=== PATIENT | female | born 1955 | race Caucasian/White ===

== ENCOUNTER 2019-07-27 10:43 | Outpatient (CLI) | payer OTHER ==
--- NOTE | 2019-07-27 11:19 | NUR ---
1100-VASCULAR ACCESS NURSE, DYLAN TORRES RN, INFORMED OF PATIENT ARRIVAL TO ROOM 2508. 1105-TOTAL LIFT X4 TO BED.
--- NOTE | 2019-07-27 11:30 | NUR ---
POSITIVE FOR POINT OF FIRST CONTACT AND SUICIDE SCREENING. DAVE WITH INFECTION CONTROL NOTIFIED, DOES NOT MEET REQUIREMENT FOR ISOLATION. MANAGER SECONDARY ANA PAULA NOTIFIED ABOUT LIFETIME POSITIVE SUICIDE SCREENING.
--- NOTE | 2019-07-27 12:00 | NUR ---
DR QUINTERO NOTIFIED AND REVIEWED PT'S BEHAVIOR AND ASSESSMENT. PATIENT IS A LOW RISK. RESOURCES GIVEN AND SHE VERBALIZES UNDERSTANDING.
--- NOTE | 2019-07-27 12:17 | NUR ---
1205-DISCHARGE INSTRUCTIONS REVIEWED WITH PATIENT AND ENDOCRINOLOGY PHYSICIAN FROM CO. 1210-TOTAL LIFT FROM BED TO WHEELCHAIR. 1215-DISCHARGED VIA WHEELCHAIR TO CO.
== END 2019-07-27 12:15 | disposition home or self-care (01) ==
LOC: D.OPS 10:43
PROVIDERS: ATTEND Family Medicine
DX: Z79.2 Long term (current) use of antibiotics (principal); E11.9 Type 2 diabetes mellitus without complications; J44.9 Chronic obstructive pulmonary disease, unspecified; I10 Essential (primary) hypertension

== ENCOUNTER 2019-08-03 14:05 | Inpatient (IN) | payer MEDICARE, MEDICAID ==
[2019-08-03 21:26] VITALS: BP 120/64; BMI 35.0
--- NOTE | 2019-08-03 21:45 | NUR ---
NEW ADMIT TO DOCTOR QUINTERO FROM [facility] RELATED TO ALTERED MENTAL STATUS. RECEIVED VIA EMS. PATIENT IS COOPERATIVE WITH ASSESSMENT AND CARE BUT BECAME FEARFUL AND CRYING WITH STAFF ATTEMPTS TO ASSIST HER TO WHEELCHAIR TO GET HER ADMIT WEIGHT. SHE SIGNED HER ADMIT CONSENT TO TREAT ONLY. WILL ATTEMPT MORE IN THE AM. STATES SHE WANTS TO BE A DNR. WILL CONTINUE TO MONITOR.
[2019-08-03] MEDS ORDERED: PROVENTIL/2.5 MG/3 M INH (22:01)
[2019-08-03] MEDS ORDERED: BENZTROPINE MESY1 MG PO (22:02)
[2019-08-03] MEDS ORDERED: LASIX20 MG PO (22:03)
[2019-08-03] MEDS ORDERED: KLONOPIN1 MG PO (22:04)
[2019-08-03] MEDS ORDERED: KLOR-CON M2020 MEQ PO (22:04)
[2019-08-03] MEDS ORDERED: LITHOBID 300 M300 MG PO (22:05)
[2019-08-03] MEDS ORDERED: LEXAPRO20 MG PO (22:05)
[2019-08-03] MEDS ORDERED: HYDROCODON-ACE1 EA10 PO (22:06)
[2019-08-03] MEDS ORDERED: NYSTATIN1 PWD TOPICAL (22:07)
[2019-08-03] MEDS ORDERED: OMEPRAZOLE40 MG (22:08)
[2019-08-03] MEDS ORDERED: SEROQUEL400 MG PO (22:09)
[2019-08-03] MEDS ORDERED: SEROQUEL200 MG PO (22:09)
[2019-08-03 23:02] LABS: BASOPHILS 0.2 % (0-2); EOSINOPHILS 1.6 % (0-7); HEMOGLOBIN 8.8 g/dL (12-16); IMMATURE GRANULOCYTES 0.4 % (0-5); LYMPHOCYTES 18.8 % (15-50); MCH 28.8 pg (26.0-34.0); MCHC 29.3 g/dL (31.0-37.0); MEAN PLATELET VOLUME 8.1 fL (7.4-10.4); MONOCYTES 8.2 % (2-11); NEUTROPHILS 70.8 % (40-80); PLATELET COUNT 306 10x3/uL (130-400); RBC 3.06 10x6/uL (4.00-5.40); RDW 18.5 % (11.5-14.5); WBC 10.6 10x3/uL (4.8-10.8)
--- NOTE | 2019-08-03 23:31 | NUR ---
PATIENT UPSET, FEARFUL. CRYING. INCREASING ANXIETY. UNABLE TO REDIRECT. PRN ATIVAN 0.5 MG IM GIVEN FOR ANXIETY. CONTINUE TO MONITOR.
[2019-08-03 23:44] LABS: ALKALINE PHOSPHATASE 122 U/L (30-120); ALT (SGPT) 8 U/L (10-68); BILIRUBIN - TOTAL 0.49 mg/dL (0.2-1.3); CALC OSMOLALITY 269 mosm/kg (275-300); CALCIUM 8.7 mg/dL (8.5-10.1); CARBON DIOXIDE 26.9 mmol/L (21.0-32.0); CHLORIDE - SERUM 104 mmol/L (98-107); CHOL - HDL RATIO 2.8 ratio (2.3-4.1); CHOLESTEROL, TOTAL 111 mg/dL (0-200); CREATININE - SERUM 0.7 mg/dL (0.6-1.3); GLUCOSE 119 mg/dL (74-106); HDL CHOLESTEROL 40 mg/dL (32-96); LDL CHOLESTEROL 53 mg/dL (0-100); LDL-HDL RATIO 1.3 ratio (1.5-3.5); POTASSIUM - SERUM 4.4 mmol/L (3.5-5.1); SODIUM 135 mmol/L (136-145); THYROID STIMULATING HORMONE 3.73 uIU/mL (0.36-3.74); TRIGLYCERIDE 90 mg/dL (30-200); UREA NITROGEN 9 mg/dL (7-18); eGFR NON AFRICAN AMERICAN 89 mL/min (90-120)
[2019-08-04 07:46] VITALS: BP 120/85
[2019-08-04 08:00] VITALS: BP 120/85
[2019-08-04 10:35] VITALS: BMI 34.9
[2019-08-04 10:49] VITALS: Wt 89.4 kg
[2019-08-04 13:19] LABS: % SATURATION 17 % (15-55); IRON 27 ug/dl (35-150); TOTAL IRON BIND CAPACITY 156 ug/dl (260-445); UNSAT IRON BIND CAPACITY 129 ug/dl (150-375)
--- NOTE | 2019-08-04 13:20 | NUR ---
PT SITTING IN CHAIR YELLING OUT AT THIS TIME. PT ORIENTED TO SELF ONLY AND CONFUSED. REDIRECT AND REORIENT. ATTEMPTED TO REORIENT TO SELF. PT YELLS OUT AT TIME AND UNABLE TO REDIRECT. PT COMPLIANT WITH MEDS, VITALS AND ASSESSMENTS THIS SHIFT. PT IS A TOTAL AND MAX ASSIST. CHAIR ALARM IN PLACE AND ACTIVE.
[2019-08-04 20:41] VITALS: BP 110/68
--- NOTE | 2019-08-04 22:39 | NUR ---
B)RECEIVED PATIENT SITTING IN A CHAIR AT THE NURSES STATION. CONFUSED AND DISORIENTED. CHILDLIKE AND WILL CRY OUT. RELATES "I CAN'T STAND. HELP ME." MHT HAD TO FEED PATIENT HER HS SNACK. PATIENT DOES NOT ATTEMPT TO DO ANYTHING FOR HERSELF. I)ADMINISTER MEDS AND MONITOR COMPLIANCE. REORIENT NEEDED. R)MED COMPLIANT. POOR REORIENTATION DUE TO IMPAIRED ABILITY TO PROCESS INFORMATION AND HAS A SHORT ATTENTION SPAN. P)CONTINUE POC AND PROVIDE SAFE ENVIRONMENT.
[2019-08-05 06:08] LABS: RAPID PLASMA REAGIN Non Reactive (Non Reactive)
--- NOTE | 2019-08-05 09:30 | NUR ---
PT SITTING IN CHAIR AT THIS TIME. 3X ASSIST TO GET PT INTO CHAIR AT THIS TIME. PT CAN MAKE SOME NEEDS KNOWN. PT IS DISORIENTED TO PLACE AND SIUTATION. PT YELLS OUT AT AT TIMES. UNABLE TO REDIRECT AND REORIENT AT THIS TIME. PT IS A MAX ASSIST. CHAIR ALARM IN PLACE AND ACTIVE. WILL CONT PLAN OF CARE.
--- NOTE | 2019-08-05 10:30 | NUR ---
PT C/O OF PAIN TO HER LEGS AT THIS TIME. PT CONTS TO YELL OUT. UNABLE TO REDIRECT AT THIS TIME. HYDROCODONE 10 MG PO PER PRN ORDER. WILL REASSESS.
--- NOTE | 2019-08-05 11:30 | NUR ---
PT EYES CLOSED AT THIS TIME. PT NOT YELLING OUT AT THIS TIME. RESTING QUIETLY.
--- NOTE | 2019-08-05 13:59 | NUR ---
Nutrition Follow-up: Poor appetite/PO intake. Requires feeding assistance. Diet: Regular, Mech Soft PO intake: 20-25% yesterday Wt: 197# (08/03) Last BM: 08/03 Labs reviewed Meds noted: Senokot, Lasix, KDur, vitamin B12, Pepcid, vitamin D, folate -Encourage PO intake and honor food preferences within diet restrictions. -Offer nutrition supplements. -Pt may benefit from appetite stimulant if PO intake does not improve. -Monitor wt. -RD following.
--- NOTE | 2019-08-05 14:05 | PSY ---
PATIENT NAME:ALESSIA CORNELL MEDICAL RECORD: [id number] : 53 LOCATION:[facility] Kidd ADMISSION DATE: 08/03/19 ACCOUNT: [id number] PSYCHIATRIC EVALUATION DATE OF EVALUATION: 08/04/19 IDENTIFYING DATA: The patient is 64 years old and she is admitted to the hospital on a voluntary basis. CHIEF COMPLAINT: Agitation and confusion. HISTORY OF PRESENT ILLNESS: The patient comes to us from a local senior care. She has been displaying very disruptive behaviors there, yelling, agitated and difficult to redirect. She apparently has some paranoid thoughts about her food. She is very distressed and not able to provide much in the way of useful information at this time. PAST MEDICAL HISTORY: Significant for hypertension, diabetes, COPD, and obesity. PAST PSYCHIATRIC HISTORY: Significant for a longstanding diagnosis of schizophrenia for which the patient has been extensively treated on both an inpatient and outpatient basis. FAMILY HISTORY: Unknown. ALLERGIES: SULFA. CURRENT MEDICATIONS: Include albuterol, Cogentin, Lasix, Klonopin, potassium, Lexapro, lithium, hydrocodone, and Seroquel. SOCIAL HISTORY: The patient is . She had 2 children, one of whom has . She lives in a senior care. She has no history of drug or alcohol abuse and is a former cigarette smoker. MENTAL STATUS EXAMINATION: The patient is obese, awake, alert and not cooperative. She is yelling out. She is answering questions in a labile manner. She is fully oriented. She denies that she would seek to harm herself or others. She denies psychotic symptoms. ASSESSMENT: AXIS I: Schizophrenia, paranoid type. AXIS II: None. AXIS III: Hypertension, chronic obstructive pulmonary disease, chronic back pain, gastroesophageal reflux disease, anemia, and obesity. 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 She will be treated with both mood stabilizing and antipsychotic medications. Her long-term prognosis is guarded. TRANSINT:[id number] Voice Confirmation ID: [id number] DOCUMENT ID: [id number] STACIA QUINTERO MD at 1405 CC: [id number] DICTATION DATE: 08/04/19 1146 FOUNDRY WORKER GENERAL: 08/04/19 1201 ADM IN [place] [address] [place] [address]
[2019-08-05 16:40] LABS: BILIRUBIN NEGATIVE (NEGATIVE); GLUCOSE NEGATIVE (NEGATIVE); KETONE NEGATIVE (NEGATIVE); NITRITE NEGATIVE (NEGATIVE)
[2019-08-05 16:49] LABS: BACTERIA MANY /hpf (NEGATIVE); EPITHELIAL CELLS 0-5 /hpf (0-5); RED CELLS - URINE 0-5 /hpf (0-5); WHITE CELLS - URINE >50 /hpf (NEGATIVE)
--- NOTE | 2019-08-05 22:40 | NUR ---
B) Patient is sleeping at this time, quiet and not yelling out, no behaviors noted, I) Administered scheduled medications as ordered, monitored for safety R) Medication compliant, resting quietly P) Continue plan of care.
--- NOTE | 2019-08-06 08:30 | NUR ---
2X ASSIST TO CHANGE BEDDING AND PERFORM ADLS FOR PT. PT INCONTIENT OF BOWEL AND BLADDER.
--- NOTE | 2019-08-06 08:34 | NUR ---
PT TEMP IS T: 100.9, B/P: 115/67, P:84, R:22, O2: 95%. PT IS WARM TO THE TOUCH. PAGED DR. MCKEON. INFORMATION GIVEN: VITALS SIGNS, WBC, URINE CULTURE DAY 1. DR. MCKEON TO START PT ON ANTIBIOTICS. WILL CONT TO MONITOR PT AT THIS TIME. PT IS RESTING WITH LOUD BREATHS, LUNG SOUNDS CLEAR ALL QUADS.
[2019-08-06 11:05] VITALS: BP 115/67
--- NOTE | 2019-08-06 11:28 | NUR ---
PT STARTED ON INVANZ 1 GRAM Q 24 HOUR X 7DAYS. D/C SENNA. FIRST DOSE OF ANTIBIOTIC ADMINISTERED. WILL CONT TO MONITOR FOR S/SX OF REACTION. BED ALARM IN PLACE AND ACTIVE. WILL CONT TO MONITOR.
--- NOTE | 2019-08-06 11:31 | NUR ---
2X ASSIST TO CHANGE PT BED AND PERICARE. TOTAL ASSIST WITH ADLS.
--- NOTE | 2019-08-06 13:29 | NUR ---
2X ASSIST WITH PT BED CHANGE AND PERICARE. PT TOTAL ASSIST.
--- NOTE | 2019-08-06 16:31 | NUR ---
PT RESTING IN BED WITH EYES CLOSED. PT IS NOT YELLING OUT AT THIS TIME. PT HAS INTERMETT TIMES OF YELLING OUT AND CRYING UNCONTROLABLE. UNABLE TO CONSOLE PT. PT IS ORIENTED AT TIMES. REDIRECT AND REORIENT NEEDED. COMPLIANT WITH MEDS, VITALS AND ASSESSMENTS. TOTAL AND MAX ASSIST 2XPERSON ASSISTANCE WITH BASIC ADLS. PT DOES NOT ASSIST AND YELLS OUT DURING PERICARE. CONT TO ADMINISTER NYSTATIN TO EFFECTED AREAS. CONT ANTIBIOTIC. BED ALARM IN PLACE AND ACTIVE. WILL CONT PLAN OF CARE.
[2019-08-06 20:00] VITALS: BP 96/57
--- NOTE | 2019-08-06 22:00 | NUR ---
B.) PT IS ALERT AND ORIENTED TO SELF ONLY. SHE HAS POOR INSIGHT INTO HER SITUATION. SHE IS RECEIVED IN HER ROOM. SHE IS UNABLE TO AMBULATE. I.) PROVIDED PM MEDICATIONS PRESCRIBED. REDIRECT OFTEN. TURN AND REPOSITION Q2 HOURS. R.) COMPLIANT WITH ALL MEDICATIONS. DIFFICULT TO REDIRECT. TOLERATED REPOSITION WELL WITH NO SIGNS OF DISTRESS. P.) WILL CONTINUE TO MONITOR.
--- NOTE | 2019-08-07 03:54 | NUR ---
PT CRYING OUT CONTINUOUSLY. UNCONSOLABLE. YELLING OUT AT TIMES. PRN ATIVAN ADMINISTERED IM. WILL CONTINUE TO MONITOR.
--- NOTE | 2019-08-07 04:25 | NUR ---
PT RESTING CALMY AND QUIETLY IN BED WITH EYES CLOSED. NO SIGNS OF DISTRESS NOTED. WILL CONTINUE TO MONITOR.
--- NOTE | 2019-08-07 07:20 | NUR ---
Assessed the patient she is sleeping not opening her eyes, staff cleaning her as she voided urine. The patient is yelling and not assisting staff to roll ot move. She is not opening her eyes. Staff offering ice chips and water she is refusing.
[2019-08-07 08:07] VITALS: BP 103/59
--- NOTE | 2019-08-07 09:00 | NUR ---
The patient voided urine, staff cleaned her up and applied nystatin powder to her bette area and abdominal folds. The patient is not assisting staff, she yells when she is moved. Offered water. Offered breakfast, she does not want it, holds the food in her mouth. Repositioned.
[2019-08-07 10:13] VITALS: BP 103/59
--- NOTE | 2019-08-07 10:30 | NUR ---
Offering the patient her meds she is not doing well with that, she is allowing it to sit in her mouth, provided juice, water, and ice chips, she swallows the fluids easier. She voided urine, cleaned her up, changed chux. She is not opening her eyes, she yells out when she is moved. She is not assisting staff.
[2019-08-07 12:48] LABS: BASOPHILS 0.3 % (0-2); EOSINOPHILS 1.3 % (0-7); HEMATOCRIT 27.3 % (36.0-48.0); HEMOGLOBIN 8.1 g/dL (12-16); IMMATURE GRANULOCYTES 0.4 % (0-5); LYMPHOCYTES 22.6 % (15-50); MCH 29.1 pg (26.0-34.0); MCHC 29.7 g/dL (31.0-37.0); MCV 98.2 fL (80.0-100.0); MONOCYTES 13.7 % (2-11); NEUTROPHILS 61.7 % (40-80); RBC 2.78 10x6/uL (4.00-5.40); WBC 7.4 10x3/uL (4.8-10.8)
[2019-08-07 12:50] LABS: PLATELET COUNT 220 10x3/uL (130-400)
[2019-08-07 13:03] LABS: ALBUMIN 1.8 g/dL (3.4-5.0); ALKALINE PHOSPHATASE 94 U/L (30-120); ALT (SGPT) 8 U/L (10-68); BILIRUBIN - TOTAL 0.46 mg/dL (0.2-1.3); CALC OSMOLALITY 275 mosm/kg (275-300); CALCIUM 8.5 mg/dL (8.5-10.1); CARBON DIOXIDE 25.3 mmol/L (21.0-32.0); CHLORIDE - SERUM 109 mmol/L (98-107); CREATININE - SERUM 0.8 mg/dL (0.6-1.3); GLUCOSE 102 mg/dL (74-106); PROTEIN - SERUM 6.3 g/dL (6.4-8.2); SODIUM 139 mmol/L (136-145); UREA NITROGEN 8 mg/dL (7-18); eGFR NON AFRICAN AMERICAN 76 mL/min (90-120)
--- NOTE | 2019-08-07 13:40 | NUR ---
Offered the patient water and ice chips, tried to see if she would eat, she is too sleepy, she makes a grunt sound when questioned, otherwise she is not opening her eyes or speaking to staff. Checked to see if the patient was wet. Turned to right side. Her legs and feet are edematous.
--- NOTE | 2019-08-07 15:15 | NUR ---
Assessed patient to turn her to her side and check if she is wet. She is dry and she is rolled to her left side with blankets and pillows to brace her up. Sat her up in the bed and offered her water and ice chips, she does not want them and has spit them out. Did not give her 1500 meds as she is too sleepy and spitting out her fluids and ice chips.
--- NOTE | 2019-08-07 17:20 | NUR ---
Checked the patient sat her up in the bed to see if she would like to eat or drink. Offered her pudding, she spit it out. Offered her water she spit it out.
--- NOTE | 2019-08-07 17:48 | NUR ---
Patient is wet, provided a bed bath and changed her linen. She screamed. Offered her more ice chips, she refused. Jeremiah Jameson [facility] provided a shampoo shower cap. The patient is repositioned to her right side at this time. HOB elevated slightly. The patient is opening her eyes and looking at staff, but she has not spoken to anyone.
--- NOTE | 2019-08-07 20:50 | NUR ---
B.) PT IS ALERT AND ORIENTED TO SELF ONLY. SHE IS UNABLE TO SPEAK COHERENTLY. SHE YELLS OUT CONSTANTLY. SHE IS CRYING AND TEARFUL. SHE IS UNABLE TO ASSIST WITH REPOSITIONING. I.) PROVIDED PRN 0.5 MG ATIVAN IM. REDIRECT CONSTANTLY. R.) COMPLIANT WITH ALL MEDICATIONS. IMPOSSIBLE TO REDIRECT. P.) WILL CONTINUE TO MONITOR.
--- NOTE | 2019-08-07 21:18 | NUR ---
PATIENT YELLING OUT WHEN ASKED SHE SAID YES TO ARE YOU IN PAIN, PRN NORCO GIVEN FOR PAIN ESTAMATED TO BE 8 OF 10 AT 21:04, WILL CONTINUE TO MONITOR.
--- NOTE | 2019-08-07 21:21 | NUR ---
PT RESTING CALMLY IN BED WITH EYES CLOSED. NO SIGNS OF DISTRESS NOTED. WILL CONTINUE TO MONITOR.
--- NOTE | 2019-08-08 01:55 | NUR ---
PATIENT IN PAIN 8 OF 10 , BACK PAIN, GAVE PRN NORCO 10 TAB PO AND BACLOFEN 10 MG PO .
[2019-08-08 05:17] VITALS: BP 110/66
--- NOTE | 2019-08-08 07:45 | NUR ---
Staff got the patient up and put her in the bed. She is cleansed and assisted to the michael lift and in a soren chair. Offered her some ice chips. She didn't want them. She is yelling out. Asked if she is hurting. She said "No." Asked her if she is anxious. She said "Yes" Told her I'd get her morning meds ready.
[2019-08-08 08:24] VITALS: BP 115/51
--- NOTE | 2019-08-08 08:37 | NUR ---
The patient is awake is in the day room, staff trying to feed her, but she is spitting it out. She took her meds crushed in an ensure. Turned her to her left side in the recliner. Offered her a grape juice and she did drink all of it, thickened it to make sure she didn't choke. She did well.
--- NOTE | 2019-08-08 11:06 | NUR ---
The patient is yelling intermittantly. She is on her back now and offered her cranberry juice, thickened it and she drank all of it. She also ate an ice cream.
--- NOTE | 2019-08-08 11:17 | NUR ---
The patient continues to scream and yell and she is not listening or redirecting. Ativan 0.5 mg po given and provided her juice. She continues to yell.
--- NOTE | 2019-08-08 12:16 | NUR ---
The patient continues to yell and she is offered ice cream and repositioned. Baclofen po provided, see MAR.
--- NOTE | 2019-08-08 13:00 | NUR ---
The patient is yelling out intermittantly. She is trying to relax.
--- NOTE | 2019-08-08 13:20 | NUR ---
The patient continues to yell and she is beginning to upset others. Provided her Ativan 0.5 mg and Haldol 2 mg po, also provided her a few sips of boost.
--- NOTE | 2019-08-08 13:40 | NUR ---
Assisted patient to her right side in the recliner, although, the patient is not staying on the side well.
--- NOTE | 2019-08-08 14:50 | NUR ---
Brought the patient to her room so that she can lay down and get off of her bottom. Changed her as she is wet and rolled her to her right side. The patient continues to yell.
--- NOTE | 2019-08-08 17:20 | NUR ---
Attempted to feed the patient her meal, she refused, but she drank a whole boost. Assisted the patient on her back and put the HOB up. She is not screaming at this time.
[2019-08-08 18:55] VITALS: BP 129/75
--- NOTE | 2019-08-08 18:55 | NUR ---
RECEIVED IN DAYROOM. RESTING IN BED WITH EYES CLOSED. YELLING OUT CONTINUOUSLY. UNABLE TO REDIRECT OR REORIENT. CONTINUES TO YELL OUT. CONTINUE PLAN OF CARE.
--- NOTE | 2019-08-08 21:57 | NUR ---
PATIENT YELLING OUT UNCONTROLLABLY. INCREASING ANXIETY. UNABLE TO REDIRECT AND REORIENT TO CALM. PRN ATIVAN 0.5 MG IM GIVEN FOR ANXIETY. PRN HALDOL 2 MG IM GIVEN FOR PSYCHOTIC BEHAVIOR. PATIENT REPOSITIONED TO HER LEFT SIDE. CONTINUE TO MONITOR.
--- NOTE | 2019-08-08 22:47 | NUR ---
RESTING QUIETLY WITH EYES CLOSED.
[2019-08-09 08:29] VITALS: BP 134/54
--- NOTE | 2019-08-09 12:00 | NUR ---
RECEIVED IN HALLWAY OUTSIDE OF NURSES STATION. CALM AND COOPERATIVE WITH CARE AND ASSESSMENT. YELLING OUT. NOT REDIRECTABLE. REDIRECT AND REORIENT NEEDED. REFUSING TO EAT AT THIS TIME. CONTINUE PLAN OF CARE.
--- NOTE | 2019-08-09 13:26 | PN ---
PATIENT:ALESSIA CORNELL MEDICAL RECORD: [id number] LOCATION:[facility]I Enriquez ADMISSION DATE: 08/03/19 PROGRESS NOTE DATE OF SERVICE: 08/05/2019 SUBJECTIVE: The patient's case was discussed with staff. She has no new complaint. OBJECTIVE: The patient denies intent to harm herself or others. She generally tolerates her medications well. Unfortunately, she is easily agitated, very psychotic, delusional and disorganized. Her lithium level is normal at 1.07 mEq. I am going to taper her Seroquel down and treat her with a high potency neuroleptic. Longitudinal history indicate she does have a history of schizophrenia. TRANSINT:[id number] Voice Confirmation ID: [id number] DOCUMENT ID: [id number] STACIA QUINTERO MD at 1326 CC: [id number] DICTATION DATE: 08/05/19 1523 WORK DISTRIBUTOR: 08/05/19 1530 ADM IN [place] [address] [place] [address]
[2019-08-09 16:19] LABS: BASOPHILS 0.2 % (0-2); EOSINOPHILS 0.8 % (0-7); HEMOGLOBIN 9.7 g/dL (12-16); IMMATURE GRANULOCYTES 0.3 % (0-5); MCH 28.7 pg (26.0-34.0); MCHC 28.8 g/dL (31.0-37.0); MCV 99.7 fL (80.0-100.0); MEAN PLATELET VOLUME 8.4 fL (7.4-10.4); MONOCYTES 11.2 % (2-11); NEUTROPHILS 64.5 % (40-80)
[2019-08-09 16:20] LABS: HEMATOCRIT 33.7 % (36.0-48.0); PLATELET COUNT 295 10x3/uL (130-400); RBC 3.38 10x6/uL (4.00-5.40); WBC 11.8 10x3/uL (4.8-10.8)
[2019-08-09 16:29] LABS: CALC OSMOLALITY 287 mosm/kg (275-300); CALCIUM 8.8 mg/dL (8.5-10.1); CARBON DIOXIDE 24.7 mmol/L (21.0-32.0); CHLORIDE - SERUM 111 mmol/L (98-107); CREATININE - SERUM 0.8 mg/dL (0.6-1.3); GLUCOSE 118 mg/dL (74-106); POTASSIUM - SERUM 4.3 mmol/L (3.5-5.1); SODIUM 145 mmol/L (136-145); UREA NITROGEN 8 mg/dL (7-18); eGFR NON AFRICAN AMERICAN 76 mL/min (90-120)
--- NOTE | 2019-08-09 19:20 | NUR ---
RECEIVED IN BEDROOM. RESTING IN BED WITH EYES CLOSED. YELLING OUT. COOPERATIVE WITH CARE AND ASSESSMENT. ENCOURAGE TO EXPRESS NEEDS. REDIRECT AND REORIENT NEEDED. CONTINUES TO SIT CALMLY IN DAYROOM. CONTINUE PLAN OF CARE.
[2019-08-09 21:25] VITALS: BP 128/69
--- NOTE | 2019-08-09 22:52 | NUR ---
YELLING OUT CONSTANTLY FROM BED.
--- NOTE | 2019-08-10 04:55 | NUR ---
CONTINUES TO YELL OUT.
[2019-08-10 07:59] VITALS: BP 124/58
--- NOTE | 2019-08-10 10:28 | PN ---
PATIENT:ALESSIA CORNELL MEDICAL RECORD: [id number] LOCATION:[facility]I Enriquez ADMISSION DATE: 08/03/19 PROGRESS NOTE DATE OF SERVICE: 08/09/2019 SUBJECTIVE: The patient's case was discussed with staff. She has no new complaint. OBJECTIVE: The patient is not eating. She has very poor insight about her situation and is yelling out a great deal. ASSESSMENT: Schizophrenia. PLAN: The patient is going to be given a higher dose of scheduled Ativan and her Seroquel will be tapered downward. TRANSINT:[id number] Voice Confirmation ID: [id number] DOCUMENT ID: [id number] STACIA QUINTERO MD at 1028 CC: [id number] DICTATION DATE: 08/09/19 1532 BILINGUAL TEACHER ASSISTANT: 08/09/19 2322 ADM IN [facility] [address] [place] [address]
--- NOTE | 2019-08-10 11:16 | NUR ---
RECEIVED IN HALLWAY OUTSIDE OF NURSES STATION. CALM AND COOPERATIVE WITH CARE AND ASSESSMENT. YELLING OUT AT TIMES. REDIRECT AND REORIENT NEEDED. RESTING IN RECLINER WITH EYES CLOSED AT THIS TIME. CONTINUE PLAN OF CARE.
--- NOTE | 2019-08-10 19:57 | NUR ---
RECEIVED IN DAUROOM. LAYING QUIETLY IN A RECLINER. NO VERBAL RESPONSES TO QUESTIONS. YELLS OUT. COOPERATIVE WITH CARE AND ASSESSMENT. ENCOURAGE TO EXPRESS NEEDS. RESTING IN BED WITH EYES CLOSED, YELLING OUT CONSTANTLY. CONTINUE PLAN OF CARE.
[2019-08-10 21:00] VITALS: BP 125/69
--- NOTE | 2019-08-10 21:51 | NUR ---
DOCTOR LINDA CALL WITH ABNORMAL VITAL SIGNS. TEMP 103, B/P 125/69, P 112, R 23, 02 85 AND 91 AFTER ENCOURAGED TO DEEP BREATH. NEW ORDERS RECEIVED. TYLENOL 650 MG PO Q4HP, ORDERS FOR AM, CHEST X-RAY, CBC, BMP, BLOOD CULTURES X2, FLU A&B. O2 STARTED 2L VIA N/C. CONTINUE TO MONITOR.
[2019-08-11 00:17] VITALS: BP 127/72
--- NOTE | 2019-08-11 07:15 | NUR ---
RECEIVED IN PATIENT ROOM. COOPERATIVE WITH CARE AND ASSESSMENT. YELLING OUT. REFUSING TO EAT. REDIRECT AND REORIENT NEEDED. RESTING IN BED AT THIS TIME. CONTINUE PLAN OF CARE.
--- NOTE | 2019-08-11 07:46 | NUR ---
FLU SWAB TEST COLLECTED AND SENT TO LAB.
[2019-08-11 08:20] LABS: HEMATOCRIT 36.9 % (36.0-48.0); HEMOGLOBIN 10.7 g/dL (12-16); PLATELET COUNT 300 10x3/uL (130-400); RBC 3.69 10x6/uL (4.00-5.40); RDW 18.2 % (11.5-14.5)
[2019-08-11 08:33] LABS: WBC 16.5 10x3/uL (4.8-10.8)
[2019-08-11 08:47] LABS: ANISOCYTOSIS OCC; BASOPHILS 1 % (0-2); LYMPHOCYTES 24 % (15-50); NEUTROPHILS 69 % (40-80); PLATELET ESTIMATE NORMAL
[2019-08-11 08:53] LABS: ANION GAP 15.6 mmol/L (8-16); CALCIUM 8.9 mg/dL (8.5-10.1); CARBON DIOXIDE 23.5 mmol/L (21.0-32.0); POTASSIUM - SERUM 4.1 mmol/L (3.5-5.1)
[2019-08-11 09:02] LABS: CREATININE - SERUM 1.1 mg/dL (0.6-1.3)
[2019-08-11 09:04] VITALS: BP 136/63
--- NOTE | 2019-08-11 09:26 | NUR ---
SW CONTACTED PT'S DTR, DENISSE, TO DISCUSS PT'S CONDITION. LESTER LEFT VOICEMAIL TO CALL UNIT.
[2019-08-11] MEDS ORDERED: INVANZ 1 GM/NS 11 G1 IM (09:31)
[2019-08-11] MEDS ORDERED: TAMIFLU75 MG PO (09:31)
[2019-08-11] MEDS ORDERED: FERROUS SULFAT325 MG PO (09:31)
[2019-08-11] MEDS ORDERED: BACLOFEN10 MG PO (09:32)
[2019-08-11] MEDS ORDERED: ACETAMINOPHEN325 MG PO (09:32)
[2019-08-11] MEDS ORDERED: HALDOL5 MG PO (09:33)
[2019-08-11] MEDS ORDERED: KLONOPIN1 MG PO (09:33)
[2019-08-11] MEDS ORDERED: FUROSEMIDE20 MG PO (09:34)
[2019-08-11] MEDS ORDERED: K-DUR20 MEQ PO (09:35)
[2019-08-11] MEDS ORDERED: FLORAJEN3 CAPS460 MG PO (09:35)
[2019-08-11] MEDS ORDERED: VITAMIN B-121000 MCG PO (09:36)
[2019-08-11] MEDS ORDERED: Xylocaine-MPF 1% IM (09:36)
[2019-08-11] MEDS ORDERED: VITAMIN D5000 UNI3 PO (09:36)
[2019-08-11] MEDS ORDERED: Senokot TAB PO (09:36)
[2019-08-11] MEDS ORDERED: FOLIC ACID1 MG PO (09:37)
--- NOTE | 2019-08-11 09:39 | PN ---
PATIENT:ALESSIA CORNELL MEDICAL RECORD: [id number] LOCATION:[facility]I Enriquez ADMISSION DATE: 08/03/19 PROGRESS NOTE DATE OF SERVICE: 08/10/2019 SUBJECTIVE: The patient's case was discussed with staff. She has no new complaint. OBJECTIVE: The patient is withdrawn and not eating. She is answering questions minimally. Baseline labs drawn yesterday showed no significant abnormality including a lithium level that is therapeutic. ASSESSMENT: Schizophrenia. PLAN: At this time, I am going to reduce the patient's Klonopin slightly. If the other medicines are appropriate for her, they have not shown any improvement in her condition so far; however, it may be that they have not had an opportunity to become effective. TRANSINT:[id number] Voice Confirmation ID: [id number] DOCUMENT ID: [id number] STACIA QUINTERO MD at 0939 CC: [id number] DICTATION DATE: 08/10/19 1308 INFERTILITY NURSE: 08/10/19 1746 [facility] IN [facility] [address] [place] [id number]
--- NOTE | 2019-08-11 10:00 | NUR ---
COVID 19 TEST COLLECTED AND SENT TO LAB.
--- NOTE | 2019-08-11 11:26 | NUR ---
PT'S DTR DENISSE CALLED AND SW UPDATED HER ON MEDICAL DECLINE AND PT BEING SENT TO A MEDICAL FLOOR. DENISSE VERBALIZED UNDERSTANDING OF PT'S CONDITION AND REASON FOR ADMISSION.
--- NOTE | 2019-08-11 14:33 | NUR ---
PATIENT DISCHARGED FROM [facility] AND ADMITTED TO ICU. REPORT CALLED. PATIENT TRANSPORTED TO ICU VIA BED BY STAFF. HARDCOPY OF DISCHARGE PAPERWORK SENT TO ICU WITH PATIENT. PATIENT BELONGINGS SENT WITH PATIENT TO ICU. ATTEMPTED TO CALL DAUGHTER, GHANSHYAM, TO NOTIFY HER OF ICU TRANSFER AND ROOM NUMBER. NO SUCCESS. GHANSHYAM DID NOT ANSWER AND WAS UNABLE TO LEAVE VOICEMAIL.
--- NOTE | 2019-08-12 13:01 | DS ---
PATIENT:ALESSIA CORNELL :53 MEDICAL RECORD: [id number] DISCHARGE SUMMARY ADMISSION DATE: 08/03/19 DISCHARGE DATE: 08/11/19 IDENTIFYING DATA: The patient is 64 years old and she was admitted to the hospital on a voluntary basis. CHIEF COMPLAINT: Confusion and agitation. HISTORY OF PRESENT ILLNESS: The patient comes to us from a local jail. She has been disruptive there, yelling, agitated and difficult to redirect. She has some paranoid thoughts and believes her food is being poisoned. She was highly distressed and unable to give anything in the way of useful information. HOSPITAL COURSE: The patient was admitted to the hospital and comprehensively evaluated from both a medical, psychological, and social standpoint. 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 She was started on antipsychotic medications. She subsequently developed a fever and was found to have a chest x-ray consistent with a viral pneumonia. She was then transferred to the medical floor for observation as a person under investigation for possible COVID-19 infection. DISCHARGE DIAGNOSES: AXIS I: Schizophrenia, paranoid type. AXIS II: None. AXIS III: Hypertension, chronic obstructive pulmonary disease, chronic back pain, gastroesophageal reflux disease, anemia, obesity, and rule out COVID-19 infection. AXIS IV: Moderate. AXIS V: Global assessment of functioning is 30. PLAN: At the time of discharge, the patient was febrile, did not have decrease in her pulse oximetry and was suspected of having a COVID-19 infection. She was continuing to be delusional and is in need of ongoing psychiatric care. TRANSINT:[id number] Voice Confirmation ID: [id number] DOCUMENT ID: [id number] STACIA QUINTERO MD at 1301 CC: [id number] DICTATION DATE: 08/11/19 1624 COUNTER INTELLIGENCE TECHNICIAN: 08/12/19 0713 DIS IN 08/11/19 [id number] [place] [address]
== END 2019-08-11 14:40 | disposition short-term general hospital (02) | DRG 885 ==
LOC: D.PSYCH 14:05
PROVIDERS: Family Medicine; ADMIT Psychiatry & Neurology Psychiatry; ATTEND Psychiatry & Neurology Psychiatry
DX: F20.0 Paranoid schizophrenia (principal); J12.9 Viral pneumonia, unspecified; N30.00 Acute cystitis without hematuria; I10 Essential (primary) hypertension; J44.9 Chronic obstructive pulmonary disease, unspecified; K21.9 Gastro-esophageal reflux disease without esophagitis; F41.8 Other specified anxiety disorders; M19.91 Primary osteoarthritis, unspecified site; D50.8 Other iron deficiency anemias; E55.9 Vitamin D deficiency, unspecified; E66.9 Obesity, unspecified; Z68.35 Body mass index [BMI] 35.0-35.9, adult

== ENCOUNTER 2019-08-11 16:43 | Inpatient (IN) | payer OTHER ==
[~2019-08-11] VITALS: Ht 170.2 cm; Wt 82.6 kg
--- NOTE | 2019-08-11 15:00 | NUR ---
RECEIVED FROM [facility] PER BED. TRANSFERED TO BED PER STAFF. PATIENT ANSWERS TO HER NAME AND STATES SHE IS IN HOSPITAL BUT DOES NOT ANSWER WHEN ASKED WHY SHE IS IN THE HOSPITAL. MOVES TOES ON REQUEST BUT DOES NOT SQUEEZE HANDS ON REQUEST. PUPILS LARGE AND REACTIVE TO LIGHT. MONITOR SR WITH PAC'S. TEMP 102.[address] NUGENT HERE ORDERS RECEIVED. INCONT OF URINE YELLOW NO FOUL ODOR NOTED. YEAST PINK RASH NOTED IN ABD FOLDS, GROIN AREA BETWEEN LEGS. NO SKIN BREAKDOWN ON COCCYX NOTED. BRUISING NOTED ON ARMS AND LEGS. ABD SOFT. PULSE OX 88% ON ROOM AIR. OXYGEN HIGH FLOW APPLIED 4 LITERS PER NC. DOES REALLY MAKE EYE CONTACT. BUT DOES LOOK AT NURSE.
[2019-08-11 16:00] VITALS: BP 129/78
--- NOTE | 2019-08-11 16:00 | NUR ---
IV STARTED RIGHT THUMB WRIST AREA WITH 22 GAUGE X 3 STICKS INFUSING WITH D51/2 NS AT 75 ML HOUR PER ORDERS OF DR. NUGENT. PICKENS CATH INSERTED 16F IN PMP CERTIFIED PROJECT MANAGER WITH IMMEDAITE RETURN OF CLEAR YELLOW URINE.PATIENT TOLERATED WELL. ASKED IF SHE WAS HUNGRY AND SHE SAID YES. HEAD OF BED ELEVATED 30 DEGREES. PICKENS SECURE TO RIGHT THIGH
[~2019-08-11 16:43] MED LIST: ACETAMINOPHEN325 MG PO; BACLOFEN10 MG PO; BENZTROPINE MESY1 MG PO; FERROUS SULFAT325 MG PO; FLORAJEN3 CAPS460 MG PO; FOLIC ACID1 MG PO; FUROSEMIDE20 MG PO; HALDOL5 MG PO; HYDROCODON-ACE1 EA10 PO; INVANZ 1 GM/NS 11 G1 IM; K-DUR20 MEQ PO; KLONOPIN1 MG PO; KLOR-CON M2020 MEQ PO; LASIX20 MG PO; LEXAPRO20 MG PO; LITHOBID 300 M300 MG PO; NYSTATIN1 PWD TOPICAL; OMEPRAZOLE40 MG; PROVENTIL/2.5 MG/3 M INH; SEROQUEL200 MG PO; SEROQUEL400 MG PO; Senokot TAB PO; TAMIFLU75 MG PO; VITAMIN B-121000 MCG PO; VITAMIN D5000 UNI3 PO; Xylocaine-MPF 1% IM
[2019-08-11 17:18] VITALS: BP 131/71; BMI 28.6
--- NOTE | 2019-08-11 17:30 | NUR ---
PUREED DIET FEED TO PATIENT ATE FIRST 2 BITES WELL. HEAD OF BED ELEVATED 90 DEGREES. THIRD BITE HELD IN MOUTH. GAVE PATIENT HONEY CONSISTENCY TEA TO SWALLOW FOOD IN MOUTH. PATIENT DID START COUGHING AND CHOKING. NO MORE DIET FEED TO PATIENT AT THIS TIME.
[2019-08-11 19:00] VITALS: BP 122/62
--- NOTE | 2019-08-11 19:00 | NUR ---
HEAD TO TOE ASSESSMENT COMPLETED. PT CONFUSED/LETHARGIC WITH AN ELEVATED TEMP. ADMINISTERED TYLENOL ORDERED. LAB OBTAINED CULTURES. INSERTED PIV INTO RT ACX 1 STICK AND ADMINISTERED ABX PER ORDER. REPOSITIONED PATIENT. COVID ISOLATION MAINTAINED. BED LOW SIDE RAILS UPX2 CALL LIGHT WITH IN REACH.
--- NOTE | 2019-08-11 20:00 | NUR ---
ATTEMPTED TO ADMINISTER PO TYLENOL WITH A APPLESAUCE. PT LETHARGIC. UNABLE TO KEEP PT AWAKE. WILL ADMINISTER SUPPOSITORY PER ORDER.
[2019-08-11 23:00] VITALS: BP 121/74
[2019-08-12] VITALS (36 sets, daily range): BP systolic 78–129; BP diastolic 37–73; Ht 170.2 cm; Wt 82.6 kg
[2019-08-12 03:52] LABS: APTT 34.6 SECONDS (22.8-39.4)
[2019-08-12 04:05] LABS: D-DIMER-QUANTITATIVE 13.19 ug/mLFEU (0.20-0.54)
[2019-08-12 04:11] LABS: ALBUMIN 2.2 g/dL (3.4-5.0); ANION GAP 9.8 mmol/L (8-16); BILIRUBIN - TOTAL 0.66 mg/dL (0.2-1.3); C-REACTIVE PROTEIN 5.1 mg/dL (0.0-0.9); CALCIUM 8.5 mg/dL (8.5-10.1); CARBON DIOXIDE 24.9 mmol/L (21.0-32.0); CREATININE - SERUM 0.9 mg/dL (0.6-1.3); POTASSIUM - SERUM 3.7 mmol/L (3.5-5.1); PROTEIN - SERUM 7.3 g/dL (6.4-8.2)
[2019-08-12 04:13] LABS: BASOPHILS 0.3 % (0-2); EOSINOPHILS 0.3 % (0-7); HEMOGLOBIN 10.8 g/dL (12-16); IMMATURE GRANULOCYTES 0.4 % (0-5); LYMPHOCYTES 14.1 % (15-50); MCH 29.1 pg (26.0-34.0); MCHC 28.4 g/dL (31.0-37.0); MEAN PLATELET VOLUME 9.5 fL (7.4-10.4); MONOCYTES 8.6 % (2-11); NEUTROPHILS 76.3 % (40-80); PLATELET COUNT 252 10x3/uL (130-400); RBC 3.71 10x6/uL (4.00-5.40); RDW 17.9 % (11.5-14.5); WBC 18.6 10x3/uL (4.8-10.8)
[2019-08-12 04:14] LABS: MCV 102.4 fL (80.0-100.0)
--- NOTE | 2019-08-12 04:25 | NUR ---
CALLED DR SAMSON REGARDING AM LAB RESULTS. ORDERS RECIEVED TO ADMINISTER VANC 1 GR AND HAVE PHARMACY DOSE THE REMAINER. UPDATED CONDITION. WILL CONTINUE TO MONITOR. PROVIDED ORAL CARE AND REPOSITIONED FOR COMFORT.
--- NOTE | 2019-08-12 07:30 | NUR ---
REPORT RECEIVED. PT ON COVID PRECAUTIONS. HAS IV TO RIGHT AC. PT IS CONFUSED AND YELLING. GARBLED. HARD TO UNDERSTAND. PT HAS PICKENS. IS ON HIGH FLOW O2 AT 4L. PT HAS PICKENS. WAS TOLD IN REPORT THAT PT CANNOT SWALLOW. THAT SHE ALMOST CHOKED ON HER DINNER LAST NIGHT THEN WAS UNABLE TO SWALLOW PILLS. WILL MONITOR.
--- NOTE | 2019-08-12 09:07 | NUR ---
O2 RATE INCREASED TO 7L PER RT AND ABG DONE.
--- NOTE | 2019-08-12 10:00 | NUR ---
ATTEMPTED TO CALL EMERGENCY CONTACT, GHANSHYAM FOX, TO VERIFY PT'S CODE STATUS. UNABLE TO LEAVE VOICEMAIL D/T VOICE MAILBOX NOT BEING SET UP. WILL TRY AGAIN.
--- NOTE | 2019-08-12 10:40 | NUR ---
SPOKE WITH PT'S DAUGHTER, GHANSHYAM, WHO STATED THAT PT IS NOT A DNR. SHE STATES THAT THEY HADN'T HAD THAT CONVERSATION TO DECIDE.
--- NOTE | 2019-08-12 11:18 | NUR ---
NG TUBE DROPPED TO LEFT NARE BY DR NUGENT. PT ON NONREBREATHER. IN SOFT WRIST RESTRAINTS AT THIS TIME. WILL CONTINUE TO MONITOR.
--- NOTE | 2019-08-12 12:49 | NUR ---
TEMP OF 101.7 AXILLARY. TYLENOL SUPPOSITORY GIVEN. PT GLENNAING. GEODON IM GIVEN. WILL CONTINUE TO MONITOR.
--- NOTE | 2019-08-12 13:40 | NUR ---
PT HAVING ECHO DONE.
--- NOTE | 2019-08-12 19:00 | NUR ---
HEAD TO TOE ASSESSMENT COMPLETED. PT UNRESPONSIVE WITH LABORED BREATHING ON NON REBREATHER AT 15 L. ATTEMPTED TO CALL FROM FAMILY FROM CHART, AND EHR. ALL NUMBERS ARE DISCONNECTED. CALLED [facility], AND HALFW[facility] FOR NUMBERS, BUT UNABLE TO OBTAIN A DIFFRENT NUMBER FOR FAMILY.
--- NOTE | 2019-08-12 21:00 | NUR ---
REPOSITIONED PT AND HR INCREASED TO 150. BP DECREASED. PROVIDED ORAL CARE FOR COMFORT.
[2019-08-13] VITALS (40 sets, daily range): BP systolic 71–96; BP diastolic 32–67
[2019-08-13 03:56] LABS: BILIRUBIN - TOTAL 1.47 mg/dL (0.2-1.3); CARBON DIOXIDE 23.7 mmol/L (21.0-32.0); MAGNESIUM - SERUM 2.2 mg/dL (1.8-2.4); PHOSPHOROUS 7.7 mg/dL (2.5-4.9); PROTEIN - SERUM 7.2 g/dL (6.4-8.2)
[2019-08-13 04:04] LABS: HEMOGLOBIN 11.5 g/dL (12-16); MCH 29.2 pg (26.0-34.0); MCHC 26.7 g/dL (31.0-37.0); MCV 109.1 fL (80.0-100.0); RBC 3.94 10x6/uL (4.00-5.40); RDW 17.7 % (11.5-14.5); WBC 39.7 10x3/uL (4.8-10.8)
[2019-08-13 04:05] LABS: MEAN PLATELET VOLUME 10.3 fL (7.4-10.4); PLATELET COUNT 353 10x3/uL (130-400)
[2019-08-13 04:12] LABS: CREATININE - SERUM 2.3 mg/dL (0.6-1.3)
[2019-08-13 04:16] LABS: ANION GAP 13.3 mmol/L (8-16)
--- NOTE | 2019-08-13 04:30 | NUR ---
CALLED DR SAMSON FOR CRITICAL LABS, PROVIDED UPDATE OF CONDITION. NOTES REVEALED HE VERIFIED A DNR STATUS, BUT NO ORDER IN CHART. DNR ORDER OBTAINED FROM DR SAMSON.
[2019-08-13 05:09] LABS: LYMPHOCYTES 18 % (15-50); MONOCYTES 2 % (2-11); NEUTROPHILS 45 % (40-80); PLATELET ESTIMATE NORMAL
--- NOTE | 2019-08-13 07:15 | NUR ---
CALLED [phone] AND SPOKE WITH GHANSHYAM DAUGHTER. GHANSHYAM STATED SHE HAD HER PHONE OFF AND WAS APPOLOGETIC FOR NOT ABLE TO TAKE THE CALL. UPDATED CONDITION. STATED VISITING HOURS ARE AVAILABEL AT THIS TIME. PROVIDED EMOTIONAL SUPPORT. WILL SPEAK WITH [place] TO TELL THEM SHE IS ON THE WAY.
--- NOTE | 2019-08-13 07:30 | NUR ---
REPORT RECEIVED. PT ON 100% NONREBREATHER MASK. NG TUBE TO LEFT NARE. PICKENS AND RECTAL TUBES IN PLACED. PT HAS IV TO RIGHT AC WITH LEVOPHED AND D5W INFUSING. FAMILY ON WAY TO SEE PT. ON DROPLET PRECAUTIONS FOR POSSIBLE COVID.
--- NOTE | 2019-08-13 08:13 | NUR ---
FAMILY HERE TO SEE PT. PAGED DR NUGENT.
--- NOTE | 2019-08-13 08:37 | NUR ---
DR MCKEON HERE TO SPEAK WITH FAMILY.
--- NOTE | 2019-08-13 09:06 | NUR ---
PT'S DAUGHTER, GHANSHYAM, STATED THAT HER BROTHER WAS TRYING TO GET HERE FROM [place] TO BE ABLE TO SEE HIS MOM.
--- NOTE | 2019-08-13 09:15 | NUR ---
Nutrition follow-up: Pt in isolation for possible Covid-19 Remains NPO at this time Pressors in use 2/2 sepsis Labs reviewed WT: 182# Will need nutrition support started within 24-48 hours if medically feasible. RDN following.
--- NOTE | 2019-08-13 10:04 | NUR ---
INCREASED LEVOPHED. DAUGHTER AND GRANDDAUGHTER AT BEDSIDE. STATED WAITING ON BROTHER. DISCUSSED KEEPING THE PT'S BP UP WITH PRESSORS UNTIL HE GETS HERE THEN TALKING ABOUT MAKING THE PT COMFORTABLE. WILL CONTINUE TO MONITOR.
[2019-08-13 11:09] LABS: ANA REFLEX - ANTICHROMATIN ABS <0.2 AI (0.0-0.9); ANA REFLEX - CENTROMERE B ABS <0.2 AI (0.0-0.9); ANA REFLEX - DBL STRANDED DNA <1 IU/mL (0-9); ANA REFLEX - DIRECT Positive (Negative); ANA REFLEX - JO-1 AB <0.2 AI (0.0-0.9); ANA REFLEX - RNP ANTIBODIES 1.7 AI (0.0-0.9); ANA REFLEX - SCL-70 <0.2 AI (0.0-0.9); ANA REFLEX - SJOGRENS AB SSA 0.6 AI (0.0-0.9); ANA REFLEX - SJOGRENS AB SSB <0.2 AI (0.0-0.9); ANA REFLEX - SMITH AB <0.2 AI (0.0-0.9)
--- NOTE | 2019-08-13 12:35 | NUR ---
FAMILY STATED THAT SON WOULD BE HERE AROUND 1. WILL CONTINUE TO MONITOR.
--- NOTE | 2019-08-13 13:25 | NUR ---
RECEIVED NEW ORDERS FROM DR NUGENT FOR COMFORT. PT'S BROTHER IS HERE. UPDATED HIM AND PT'S DAUGHTER.
--- NOTE | 2019-08-13 13:46 | NUR ---
PT PUT ON HUMIFIED OXYGEN NC AT 6L. LEVOPHED STOPPED. ATIVAN AND MORPHINE GIVEN. FAMILY AT BEDSIDE. UNDERSTAND WHAT'S GOING ON WITH PT. WILL CONTINUE TO MONITOR.
--- NOTE | 2019-08-13 14:18 | NUR ---
CALLED [facility]. WENT TO BACK UP COMMUNICATION NETWORK. GAVE INFORMATION TO DOROTA. STATED SHE WAS SENDING A PAGE OUT TO [facility] AND THAT WE SHOULD RECEIVE A CALL SHORTLY. ELMA FOUND IN ROOM. GOING TO RECEIVE ITEMS LOCKED UP IN ER. WILL GIVE TO FAMILY. FAMILY IN WAITING ROOM AT PRESENT.
--- NOTE | 2019-08-13 14:40 | NUR ---
DOROTA CAMPBELL FROM [facility] CALLED BACK AND STATED WE COULD RELEASE THE BODY. [facility] RULED OUT DONATION.
--- NOTE | 2019-08-13 15:13 | NUR ---
RESULTS CAME BACK FOR PT BEING NEGATIVE FOR COVID.
--- NOTE | 2019-08-13 15:40 | NUR ---
POST MORTEM CARE PROVIDED.
--- NOTE | 2019-08-13 16:31 | MORECARE ---
CASE MANAGEMENT DISCHARGE SUMMARY PATIENT: ALESSIA CORNELL UNIT: [id number] ADM DATE: 08/11/19 AGE: 64 : 53 SEX: F ROOM/BED: D.2314 AUTHOR: VICKY FREEMAN PHYSICIAN: REFERRING PHYSICIAN: BELKYS MCKEON MD DATE OF SERVICE: 08/13/19 Discharge Plan Patient Name: ALESSIA CORNELL [facility] [facility] 1955 Planned Disposition: Anticipated Discharge Date: Discharge Date: 08/13/2019 Expected LOS: Initial Reviewer: [email or web address] Initial Review Date: 08/11/2019 Generated: 08/13/19 5:31 pm Patient Name: ALESSIA CORNELL Page [id number] at 1631 All edits/amendments must be made on the electronic document DICTATION DATE: 08/13/19 163 CHILDREN TEACHER: ANI 08/13/19 1631 RPT#: [id number] DC DATE:08/13/19 STATUS: DIS IN [facility] [address] [place] [address] END OF REPORT
--- NOTE | 2019-08-15 16:26 | CN ---
PATIENT NAME:ALESSIA CORNELL MEDICAL RECORD: [id number] : 53 LOCATION:[id number] ADMIT DATE: 08/11/19 ACCOUNT: [id number] CONSULTING PHYSICIAN: STACIA QUINTERO MD REFERRING PHYSICIAN: BELKYS MCKEON MD DATE OF CONSULTATION: 08/12/2019 IDENTIFYING DATA: The patient is 64 years old and she is known to me from previous clinical contact. CHIEF COMPLAINT: Confusion and agitation. HISTORY OF PRESENT ILLNESS: The patient was admitted to the [facility] on August 03 of this year. She is known to have a history of schizophrenia and she comes to us from a local skilled nursing where she has been displaying disruptive behaviors. Specifically, she has been yelling, agitated, delusional and paranoid. During the course of her treatment on the behavioral unit, she developed an abnormal chest x-ray and spiked a fever. Her pulse oximetry was not abnormal. Her Lasix was changed and there is some thought that perhaps some of the chest x-ray findings are consistent with pulmonary edema or congestive heart failure. She was transferred to the medical unit because of these symptoms and because of concerns that she may have the Covid 19 infection. Currently, she is very delusional, agitated, and disruptive. She is taking the appropriate medications, which have not really had an opportunity to be effective. I would recommend sedation consistent with the risks of aspiration and would also recommend she be transferred back to the behavioral unit once medically cleared. I will follow her and will try to address her symptoms as best I can under the difficult circumstances of her being in the intensive care unit and requiring PPE to interview her and interact with her. Unfortunately, this is contributing to her psychotic symptoms and agitation. TRANSINT:[id number] Voice Confirmation ID: [id number] DOCUMENT ID: [id number] STACIA QUINTERO MD at 1626 CC: [id number] DICTATION DATE: 08/12/19 174 MANAGER APPOINTMENT: 08/12/19 2250 DIS IN 08/13/19 [facility] [address] [place] [address]
[2019-08-16 13:09] LABS: PROCALCITONIN 0.16 ng/mL (0.00-0.08)
--- NOTE | 2019-08-17 10:11 | NUR ---
Per CMS protocol, restraint report logged into data base.
== END 2019-08-13 16:03 | DRG 871 ==
LOC: D.ICU 16:43
PROVIDERS: Internal Medicine Pulmonary Disease; ADMIT Family Medicine; ATTEND Family Medicine
DX: A41.9 Sepsis, unspecified organism (principal); J96.01 Acute respiratory failure with hypoxia; J69.0 Pneumonitis due to inhalation of food and vomit; F20.0 Paranoid schizophrenia; J44.1 Chronic obstructive pulmonary disease with (acute) exacerbation; N39.0 Urinary tract infection, site not specified; E87.0 Hyperosmolality and hypernatremia; J98.11 Atelectasis; I50.30 Unspecified diastolic (congestive) heart failure; N17.9 Acute kidney failure, unspecified; I10 Essential (primary) hypertension; M19.91 Primary osteoarthritis, unspecified site; K21.9 Gastro-esophageal reflux disease without esophagitis; Z66 Do not resuscitate; D50.8 Other iron deficiency anemias; F32.9 Major depressive disorder, single episode, unspecified; B96.1 Klebsiella pneumoniae [K. pneumoniae] as the cause of diseases classified elsewhere; E66.9 Obesity, unspecified; Z68.35 Body mass index [BMI] 35.0-35.9, adult; K59.00 Constipation, unspecified; B37.2 Candidiasis of skin and nail; I11.0 Hypertensive heart disease with heart failure; Z87.891 Personal history of nicotine dependence